=== PATIENT | female | born 1985 | race Caucasian/White ===

== ENCOUNTER → 2016-08-29 | Outpatient (CLI) | payer OTHER ==
[2016-08-29 13:21] LABS: CH 30.8; CHCM 33.1; HCT 35.1 % (34.0-46.0); HDW 2.63; HGB 11.6 gm/dL (11.4-16.0); MCHC 33.1 g/dL (31.0-37.0); MCV 93.6 fL (80.0-100.0); Mean Platelet Volume 7.3; RBC 3.75 m/uL (3.80-5.40); RDW 12.6 % (11.5-15.5); WBC 11.5 k/uL (3.8-10.6)
== END | disposition home or self-care (01) ==
LOC: LABWHC1 12:33
PROVIDERS: ATTEND Obstetrics & Gynecology
DX: Z34.82 Encounter for supervision of other normal pregnancy, second trimester (principal); Z3A.00 Weeks of gestation of pregnancy not specified
CPT/HCPCS: 36415; 82950; 85027

== ENCOUNTER → 2016-10-27 | Outpatient (CLI) | payer OTHER ==
--- NOTE | 2016-10-28 08:34 | US ---
EXAMINATION TYPE: US OB anatomy transabd third trimester. DATE OF EXAM: 10/27/2016 3:45 PM COMPARISON: Second trimester ultrasound July 07, 2016. HISTORY: O36.63X0 LARGE FOR DATES TECHNIQUE: TA EXAM MEASUREMENTS: GESTATIONAL AGE / DATING Physician Established: (35 weeks/1 days) EDC: 11/30/2016 Dates by LMP: unknown Dates by First Scan: (36 weeks/0 days) EDC: 11/24/2016 Dates by Current Scan for: (37 weeks/5 days) EDC: 11/12/2016 SURVEY IUP: Single PLACENTA: Fundal PREVIA: No previa GABBY: 15.1 cm Normal CERVICAL LENGTH (transabdominal: norm > 3.0cm): 3.1 cm BIOMETRY PRESENTATION: Vertex LIE: Longitudinal BPD: 9.3 cm 37 weeks / 6 days HC: 34.1 cm 39 weeks / 2 days AC: 34.8 cm 39 weeks / 2 days FL: 6.8 cm 35 weeks / 0 days ESTIMATED WEIGHT IN GRAMS: 3316 grams ESTIMATED WEIGHT IN LBS/OZS: 7 lbs. 5 oz. WEIGHT PERCENTAGE BASED ON ESTABLISHED DATE: 98 % HC/AC: 0.9 FL/AC: 20 HEART RATE: 123 bpm RHYTHM: Normal ANATOMY SEEN (within normal limits): Cavus Septi Pellucidi Four Chamber Heart Outflow tracts: LVOT/RVOT Stomach Situs Nose / Lips Diaphragm Kidneys (bilateral) Bladder Three Vessel Cord ANATOMY NOT SEEN: * Lateral Vent (< 1 cm) cm * Cisterna Magna (< 1.1 cm) cm * Nuchal Fold (< 0.6 cm) cm * Cerebellum (varies with age) cm Choroid Plexus (bilateral) Midline Falx Longitudinal Spine Transverse Spine Arms (bilateral) Legs (bilateral) Cord Insert Single live intrauterine gestation is redemonstrated. Normal cephalad presentation to fetus is curren tly seen. There is no ultrasound evidence for placenta previa. Amniotic fluid index is within normal limits. biometry measurements are congruent. Note is made of estimated weight at 98 perce ntile based on established date. Visualized structures during real-time scanning and still images italia ed noted above are within normal limits. Structures noted above are not well seen due to advanced fet al age but are noted to appeared within normal limits on prior second trimester ultrasound. IMPRESSION: As above, somewhat prominent estimated weight noted.
== END | disposition home or self-care (01) ==
LOC: RADUSWWP 15:02
PROVIDERS: ATTEND Obstetrics & Gynecology
DX: O36.63X0 Maternal care for excessive fetal growth, third trimester, not applicable or unspecified (principal); Z3A.37 37 weeks gestation of pregnancy
CPT/HCPCS: 76811

== ENCOUNTER → 2016-11-10 | Outpatient (CLI) | payer OTHER ==
--- NOTE | 2016-11-10 17:40 | US ---
EXAMINATION TYPE: US OB >= 14 wk fetus third trimester DATE OF EXAM: 11/10/2016 11:30 AM COMPARISON: US October 27, 2016. CLINICAL HISTORY: O36.63XO Large for datesLGA TECHNIQUE: Transabdominal (TA) GESTATIONAL AGE / DATING Physician Established: (38 weeks/0 days) EDC: 11/24/2016 Dates by LMP: Unknown Dates by First Scan: (38 weeks/0 days) EDC: 11/24/2016 Dates by Current Scan: (39 weeks/6 days) EDC: 11/11/2016 SURVEY IUP: Single PLACENTA: Fundal PREVIA: No Previa GABBY: 12.1 cm Normal CERVICAL LENGTH (transabdominal: norm > 3.0cm): 3.8 cm BIOMETRY PRESENTATION: Vertex BPD: 9.7 cm 39 weeks / 5 days HC: 34.4 cm 39 weeks / 6 days AC: 36.6 cm 40 weeks / 4 days FL: 7.6 cm 39 weeks / 0 days ESTIMATED WEIGHT IN GRAMS: 3952 grams ESTIMATED WEIGHT IN LBS/OZS: 8 lbs. 11 oz. WEIGHT PERCENTAGE BASED ON ESTABLISHED DATES: 96% HC/AC: 0.94 Normal FL/AC: 21 Normal HEART RATE: 146 bpm RHYTHM: Normal Single, viable IUP/ Growth parameters in 96th percentile Single live intrauterine gestation is redemonstrated. Normal cephalad presentation to fetus is redemo nstrated. Cervical length remains within normal limits. There is no ultrasound evidence for placenta previa. Amniotic fluid index is within normal limits. biometry measurements are congruent and c onfirmed large for gestational age as detailed above similar to prior exam. IMPRESSION: As above, findings large for gestational age redemonstrated.
== END | disposition home or self-care (01) ==
LOC: RADUSWWP 11:05
PROVIDERS: ATTEND Obstetrics & Gynecology
DX: O36.63X0 Maternal care for excessive fetal growth, third trimester, not applicable or unspecified (principal); Z3A.38 38 weeks gestation of pregnancy
CPT/HCPCS: 76805

== ENCOUNTER 2016-11-18 06:05 | Inpatient (IN) | payer OTHER ==
--- NOTE | 2016-11-17 20:02 | P.HPOB ---
History of Present Illness H&P Date: 11/17/16 Chief Complaint: Induction of labor This is a 31-year-old female 2 para 1 with an estimated date of confinement of 11/24/2016, estimated gestational age of 39 and one sevenths weeks, who presents to labor and delivery for induction of labor. She admits to good movement. She has been feeling irregular contractions and pressure. course has been, but located by macrosomia diagnosed in the third trimester. She has had 2 ultrasounds 2 weeks apart that showed estimated weight at greater than 90th percentile. Her last ultrasound on 11/10/2016 showed an estimated weight at 3952 g or 8 lbs. 11 oz. which is 96 percentile. Patient was extensively counseled regarding the risk of shoulder dystocia including risk of injury including cerebral palsy brachioplexus injury and other or maternal injuries, including enough to . She is aware that induction of labor does not prevent these risks. Despite knowing these risks she has requested induction of labor, even though she was offered section. labs: GC/chlamydia-negative Syphilis antibody-negative nonreactive HIV titer nonreactive Random glucose-86 Hepatitis B surface antigen-negative Hemoglobin-12.4 Rubella-nonimmune Blood type-O+ Antibody screen-negative Anatomy scan-within normal limits One hour Glucola-112 Group B streptococcus-negative Obstetrical history: . History of 1 vaginal delivery at 41 weeks with a weight of 7 lbs. 8 oz. Review of Systems Constitutional: Denies chills, Denies fever Ears, nose, mouth and throat: Denies headache, Denies sore throat Cardiovascular: Denies chest pain, Denies shortness of breath Respiratory: Denies cough Gastrointestinal: Reports abdominal pain (Irregular contractions) Genitourinary: Reports pelvic pain, Reports Musculoskeletal: Reports low back pain, Denies myalgias Neurological: Denies numbness, Denies weakness Past Medical History Past Medical History: No Reported History History of Any Multi-Drug Resistant Organisms: None Reported Past Surgical History: No Surgical Hx Reported Past Psychological History: No Psychological Hx Reported Smoking Status: Never smoker Past Alcohol Use History: None Reported Past Drug Use History: None Reported - Past Family History Mother Family Medical History: Diabetes Mellitus Medications and Allergies Home Medications Medication Instructions Recorded Confirmed Type Pnv with Ca,No.72/Iron/FA 1 tab PO HS 05/21/16 08/12/16 History [ Plus Tablet] Allergies Allergy/AdvReac Type Severity Reaction Status Date / Time No Known Allergies Allergy Verified 08/10/16 17:50 Exam Osteopathic Statement: *. No significant issues noted on an osteopathic structural exam other than those noted in the History and Physical/Consult. HEENT: Within normal limits Heart: Regular rate and rhythm Lungs: Clear to auscultation bilaterally Abdomen: Soft, nontender Cervix-3 cm/60%/-2 station heart tones: 140s by Doppler Extremities: Negative Homans Assessment and Plan (1) 39 weeks gestation of Status: Acute Plan: Proceed with oxytocin induction of labor. Expectant management.
[2016-11-18] MEDS ORDERED: OXYTOCIN 10 UNIT/ML 1 ML VIAL IM PRN (06:19)
[2016-11-18] MEDS ORDERED: OXYTOCIN 30 UNITS/500 ML NS 30 UNIT in SALINE 1 500ML.BAG IV SCH ×2 (06:19→15:16)
[2016-11-18] MEDS ORDERED: LIDOCAINE 1% 20 ML VIAL (10MG/ML) FOR IV START INTRADERMA PRN (06:19)
[2016-11-18] MEDS ORDERED: CARBOPROST TROMETHAMINE 250 MCG/ML 1 ML AMP IM PRN (06:19)
[2016-11-18] MEDS ORDERED: METHYLERGONOVINE 0.2 MG/ML 1 ML AMP IM PRN (06:19)
[2016-11-18] MEDS ORDERED: LIDOCAINE 1% (PF) 10 MG/ML (30 ML SDV) SQ PRN (06:19)
[2016-11-18] MEDS ORDERED: TERBUTALINE 1 MG/ML VIAL SQ PRN (06:19)
[2016-11-18 06:38] LABS: Basophils % (A) 0 %; CH 31.2; Eosinophils # (A) 0.2 k/uL (0-0.7); Eosinophils % (A) 2 %; HCT 37.2 % (34.0-46.0); HDW 2.47; HGB 12.5 gm/dL (11.4-16.0); Luc # (Auto) 0.17; Luc % (Auto) 2; Lymphocytes # (A) 2.5 k/uL (1.0-4.8); Lymphocytes % (A) 25 %; MCH 30.8 pg (25.0-35.0); MCHC 33.5 g/dL (31.0-37.0); MCV 92.1 fL (80.0-100.0); Mean Platelet Volume 8.3; Monocytes # (A) 0.4 k/uL (0-1.0); Monocytes % (A) 5 %; Neutrophils # (A) 6.5 k/uL (1.3-7.7); Neutrophils % (A) 67 %; RBC 4.04 m/uL (3.80-5.40); RDW 13.9 % (11.5-15.5); WBC 9.7 k/uL (3.8-10.6); WBC (Perox) 10.25
[2016-11-18] MEDS: LACTATED RINGERS 1,000 ML IV SCH ×2 (06:41→11:01)
[2016-11-18] MEDS ORDERED: SODIUM CHLORIDE 0.9% 100 ML BAG ONE (10:43)
[2016-11-18] MEDS ORDERED: BUPIVACAINE (PF) 0.25% 30 ML VIAL ONE (10:43)
[2016-11-18] MEDS ORDERED: fentaNYL (PF) 50 MCG/ML 5 ML AMP ONE (10:43)
[2016-11-18] MEDS ORDERED: diphenhydrAMINE 50 MG CAP PO PRN (15:16)
[2016-11-18] MEDS ORDERED: LANOLIN CREAM 5 GM TUBE TOPICAL PRN (15:16)
[2016-11-18] MEDS ORDERED: diphenhydrAMINE 50 MG/ML 1 ML VIAL IVP PRN ×2 (15:16)
[2016-11-18] MEDS ORDERED: WITCH HAZEL 1 EACH MED..PAD TOPICAL PRN (15:16)
[2016-11-18] MEDS ORDERED: ACETAMINOPHEN TAB 325 MG TAB PO PRN (15:16)
[2016-11-18] MEDS ORDERED: HYDROCORTISONE 2.5% RECTAL CREAM 30 GM TUBE RECTAL PRN (15:16)
[2016-11-18] MEDS ORDERED: MEASLES-MUMPS-RUBELLA VACC/PF 12,500 UNIT/0.5 ML VIAL SQ ONE (15:16)
[2016-11-18] MEDS ORDERED: ZOLPIDEM 5 MG TAB PO PRN (15:16)
[2016-11-18] MEDS ORDERED: SIMETHICONE 80 MG CHEWABLE PO PRN (15:16)
[2016-11-18] MEDS ORDERED: BENZOCAINE/MENTHOL SPRAY 1 GM/SPRAY AEROSOL TOPICAL PRN (15:16)
[2016-11-18] MEDS ORDERED: Acetaminophen-Codeine 300-30mg TAB PO PRN ×2 (15:16)
[2016-11-18] MEDS ORDERED: diphenhydrAMINE 25 MG CAP PO PRN (15:16)
--- NOTE | 2016-11-18 17:53 | P.PROBDLV ---
Vaginal Delivery Note - . Vaginal Delivery Note: The patient progressed to complete dilation after oxytocin induction of labor and artificial rupture membranes with clear fluid noted. She did receive epidural anesthesia. Once reaching complete dilation, she pushed for a short while. 's head came to a crown and then delivered fairly quickly across the perineum and immediately followed by the anterior shoulder. At this point she was instructed to stop pushing and nose and mouth were bulb suctioned. With one further push, the remainder the infant easily delivered and was placed on mother's abdomen. Cord was clamped and cut and was taken to warmer for evaluation. A viable female infant was noted with scores of 8 at 1 minute 8 at 5 minutes and 9 at 10 minutes and weight of 8 lbs. 3 oz. Placenta delivered shortly thereafter, intact, with three-vessel cord. Uterus contracted well after oxytocin was given and uterine massage was carried out. Inspection of the perineum revealed a left labial laceration that was anesthetized with 1% lidocaine and then sutured with 3-0 Vicryl suture in a running locked fashion. Estimated blood loss is approximately 150 mL. Both mother and are in stable condition.
[2016-11-18] MEDS: SENNOSIDES-DOCUSATE SODIUM 1 EACH TAB PO SCH (20:09)
[2016-11-18] MEDS: IBUPROFEN 600 MG TAB PO PRN (23:34)
[2016-11-19] MEDS: IBUPROFEN 600 MG TAB PO PRN ×2 (05:49→14:57)
[2016-11-19 08:05] LABS: Basophils % (A) 0 %; CH 30.9; CHCM 33.1; Eosinophils # (A) 0.2 k/uL (0-0.7); Eosinophils % (A) 2 %; HGB 11.4 gm/dL (11.4-16.0); Luc # (Auto) 0.16; Luc % (Auto) 2; Lymphocytes # (A) 1.9 k/uL (1.0-4.8); Lymphocytes % (A) 22 %; MCH 30.6 pg (25.0-35.0); MCHC 32.6 g/dL (31.0-37.0); MCV 93.9 fL (80.0-100.0); Mean Platelet Volume 8.3; Monocytes # (A) 0.3 k/uL (0-1.0); Monocytes % (A) 3 %; Neutrophils # (A) 6.5 k/uL (1.3-7.7); Neutrophils % (A) 72 %; RBC 3.73 m/uL (3.80-5.40); WBC (Perox) 9.51
[2016-11-19] MEDS: SENNOSIDES-DOCUSATE SODIUM 1 EACH TAB PO SCH ×2 (08:54→20:47)
--- NOTE | 2016-11-19 08:54 | P.PNOBGVD ---
Subjective - Subjective Principal diagnosis: Status post vaginal delivery day #1 Interval history: Patient is doing well. Her baby did need to be observed in special care nursery overnight due to some apneic episodes. So far workup is negative. She is breast-feeding. Lochia is decreasing. Pain is fairly well controlled with ibuprofen. Patient reports: Reports appetite normal, Reports voiding normally, Reports pain well controlled, Reports ambulating normally [place]: nursing well Objective - Latest Vital Signs Latest vital signs: Vital Signs Temp Pulse Resp BP BP 11/19/16 04:00 98.1 F 87 18 125/80 11/19/16 00:00 98.1 F 80 27 H 130/72 11/18/16 22:30 88 16 11/18/16 20:00 98.1 F 88 16 124/68 11/18/16 17:12 98.2 F 76 18 120/73 11/18/16 16:40 18 115/57 11/18/16 16:12 84 16 157/85 11/18/16 15:57 68 18 148/76 11/18/16 15:42 73 18 148/82 11/18/16 15:27 84 18 148/82 11/18/16 15:12 98.1 F 88 17 128/84 Intake and Output 11/18/16 11/19/16 11/19/16 22:59 06:59 14:59 Intake Total 103.333 Output Total 300 Balance -196.667 Intake: Intake, IV Titration 103.333 Amount Oxytocin 30 Units/500 ml 103.333 Ns 30 unit In Saline 1 500ml.bag @ 1 MILLIUNIT/ MIN 1 mls/hr IV .Q24H [facility] Rx#:[id number] Output: Estimated Blood Loss 300 Other: # Voids 3 - Exam Extremities: Present: normal. Absent: tenderness, edema Abdomen: Present: normal appearance, soft. Absent: distention, tenderness Uterus: Present: normal, firm. Absent: tenderness - Labs Labs: Abnormal Lab Results - Last 24 Hours (Table) 11/19/16 Range/Units 07:45 RBC 3.73 L (3.80-5.40) m/uL Plt Count 142 L (150-450) k/uL Assessment and Plan (1) 39 weeks gestation of Narrative/Plan: Impression is status post vaginal delivery day #1. Plan is to continue with care today and discharge home tomorrow. Current Visit: Yes Status: Acute Code(s): Z3A.39 - 39 WEEKS GESTATION OF SNOMED Code(s): 65241827
--- NOTE | 2016-11-19 08:58 | P.DS ---
Providers Date of admission: 11/18/16 06:05 Expected date of discharge: 11/20/16 Attending physician: Catrachita Ravi Primary care physician: Hesham Markham - Discharge Diagnosis(es) (1) 39 weeks gestation of Current Visit: Yes Status: Acute Hospital Course: This is a 31-year-old female 2 para 1 at 39-2/7 weeks who presented for induction of labor. She underwent oxytocin induction of labor and delivered vaginally a viable female on 11/18/2016. Her course has been uncomplicated however baby did have a couple of episodes of apnea and therefore is being monitored in the nursery. So far all testing has been negative however they do want the baby to stay until tomorrow. She has been breast- feeding. Lochia is decreasing. Pain is well-controlled. Vital signs are stable. Abdomen is soft with fundus firm and nontender. Extremities show negative Homans. Impression is status post vaginal delivery day #1. Plan is to discharge home tomorrow. Routine instructions are given. She will be given a prescription for ibuprofen and a breast pump to go home with. She is advised to call the office if she has any further questions or concerns prior to her appointment time. She will follow up in the office in 6 weeks for a check. Procedures: Oxytocin induction of labor Spontaneous vaginal delivery of a viable female infant on 11/18/2016 Patient Condition at Discharge: Stable Plan - Discharge Summary New Discharge Prescriptions: Ibuprofen [Motrin] 600 mg PO Q6HR PRN #60 tab PRN Reason: Mild Pain Or Fever >= 100.5 Discharge Medication List Pnv with Ca,No.72/Iron/FA [ Plus Tablet] 1 tab PO HS 05/21/16 [History] Ibuprofen [Motrin] 600 mg PO Q6HR PRN #60 tab 11/19/16 [Rx] Follow up Appointment(s)/Referral(s): Catrachita Ravi DO [Doctor of Osteopathic Medicine] - 6 Weeks Activity/Diet/Wound Care/Special Instructions: Instructions 1. Do not begin any exercise program for 3 weeks. 2. Do not resume sexual relations for 3 weeks or longer if uncomfortable. 3. You may take tub baths or showers at any time. 4. You may use tampons if desired after 3 weeks. 5. Keep the area of episiotomy (stitches) clean and dry. 6. If you are not nursing, wear a good fitting, supportive bra during the day and limit fluid intake for at least 1 week to prevent breast engorgement. 7. Call the office, [phone], within the next week to make appointment for your 6 week checkup if it has not already been made. 8. Report any of the following occurrences to the doctor promptly: a. Heavy, excessive bleeding b. Chills, fever c. Burning or frequency of urination d. Pain or redness and breasts if nursing e. Increasing pain or swelling in episiotomy (stitches). In addition to the above instructions, the following additional should be followed: 1. No heavy lifting or straining (exercising) until after 6 week checkup. 2. Keep abdominal incision clean and dry: You may wear a dressing if more comfortable. 3. Make office appointment for 10 days after going home or as instructed by her doctor. Discharge Disposition: HOME SELF-CARE
[2016-11-19 09:06] VITALS: RESP 16
[2016-11-20] MEDS: SENNOSIDES-DOCUSATE SODIUM 1 EACH TAB PO SCH (08:50)
[2016-11-20 17:33] VITALS: BP 132/65; PULSE 91; TEMP 98.6
== END 2016-11-20 20:00 | disposition home or self-care (01) | DRG 775 ==
LOC: 4FBP 06:05
PROVIDERS: ADMIT Obstetrics & Gynecology; ATTEND Obstetrics & Gynecology
PROC: 10E0XZZ Delivery of Products of Conception, External Approach (ICD-10-PCS; principal; 2016-11-18)
PROC: 0HQ9XZZ Repair Perineum Skin, External Approach (ICD-10-PCS; 2016-11-18)
PROC: 3E033VJ Introduction of Other Hormone into Peripheral Vein, Percutaneous Approach (ICD-10-PCS; 2016-11-18)
PROC: 00HU33Z Insertion of Infusion Device into Spinal Canal, Percutaneous Approach (ICD-10-PCS; 2016-11-18)
PROC: 3E0R3CZ (ICD-10-PCS; 2016-11-18)
DX: O36.63X0 Maternal care for excessive fetal growth, third trimester, not applicable or unspecified (principal); O70.0 First degree perineal laceration during delivery; Z37.0 Single live birth; Z3A.39 39 weeks gestation of pregnancy
CPT/HCPCS: 85025; 88307; 90707

== ENCOUNTER → 2017-03-12 | Outpatient (CLI) | payer OTHER ==
--- NOTE | 2017-03-12 12:33 | US ---
EXAMINATION TYPE: US transvaginal DATE OF EXAM: 03/12/2017 COMPARISON: NONE CLINICAL HISTORY: T83.32XA MALPOSITION IUD. Patient stated referring physician was unable to locate I UD string; occasional vaginal spotting since IUD inserted ~ 4 weeks ago; TECHNIQUE: Transvaginal (TV) Date of LMP: 02/28/2017 EXAM MEASUREMENTS: Uterus: 8.3 x 4.2 x 6.9 cm Endometrial Stripe: 0.4 cm Right Ovary: 4.3 x 3.0x 2.7 cm Left Ovary: 2.6 x 3.1 x 1.5 cm 1. Uterus: Anteverted, multiple small Nabothian cysts in CX with largest = 0.4 x 0.4 x 0.3cm. 2. Endometrium: IUD is noted in upper and mid endometrium with IUD string in cervix but not seen at opening of cervix. Hyperechoic IUD string seen within cervical canal at 0.6cm from external OS. 3. Right Ovary: couple follicles with largest as involuting cyst = 2.6 x 2.3 x 2.2cm 4. Left Ovary: multifollicular with largest = 0.9 x 0.9 x 0.6cm 5. Bilateral Adnexa: wnl 6. Posterior cul-de-sac: wnl IMPRESSION: 1. IUD as noted above. 2. Follicular cysts.
== END ==
LOC: RADUSWWP 11:28
PROVIDERS: ATTEND Obstetrics & Gynecology
DX: T83.32XA Displacement of intrauterine contraceptive device, initial encounter (principal); N83.00 Follicular cyst of ovary, unspecified side
CPT/HCPCS: 76830

== ENCOUNTER → 2018-02-26 | Outpatient (CLI) | payer OTHER ==
--- NOTE | 2018-02-26 15:38 | XR ---
EXAMINATION TYPE: XR thoracic spine 2V DATE OF EXAM: 02/26/2018 CLINICAL HISTORY: Upper back pain with no known injury TECHNIQUE: Frontal, lateral, and swimmer's view of thoracic spine are obtained. COMPARISON: None. FINDINGS: Thoracic spine show satisfactory alignment without evidence of acute fracture or dislocatio n. Vertebral body heights and disc space heights are preserved. Visualized ribs are unremarkable. V isualized lungs are well aerated. IMPRESSION: No acute fracture or malalignment is seen in the thoracic spine.
== END | disposition home or self-care (01) ==
LOC: RADXRMAIN 12:22
PROVIDERS: ATTEND Family Medicine
DX: M54.6 Pain in thoracic spine (principal)
CPT/HCPCS: 72070

== ENCOUNTER → 2020-04-18 | Outpatient (CLI) | payer OTHER ==
--- NOTE | 2020-04-19 07:17 | XR ---
EXAMINATION TYPE: XR foot limited LT DATE OF EXAM: 04/18/2020 CLINICAL HISTORY: pain TECHNIQUE: Frontal, lateral and images of the left foot are obtained. COMPARISON: None. FINDINGS: There is no acute fracture/dislocation evident. The joint spaces appear within normal perkins its. The overlying soft tissue appears unremarkable. Small plantar calcaneal spur is noted. IMPRESSION: There is no acute fracture or dislocation. ICD 10 NO FRACTURE, INITIAL EVALUATION
== END | disposition home or self-care (01) ==
LOC: RAD 16:51
PROVIDERS: ATTEND Family Medicine
DX: M79.672 Pain in left foot (principal)